=== PATIENT | male | born 1950 | race Caucasian/White ===

== ENCOUNTER → 2016-06-17 | Outpatient (REF) | payer OTHER ==
[~2016-06-17] MED LIST: /OCUVTA OR; ADV250INH INH; ALEV220T26 PO; ASPI1TAB PO; ATEN25TA PO; FISH1200 PO; FLAXOIL4 PO; LISI5TAB PO; MULTTAB4 PO; NITR4TASL SL; SIMV40TA2 PO; [UNRECOGNIZED DRUG - CODE] TD
[2016-06-19 14:16] LABS: Lyme Disease IgG/IgM Antibodie <0.91 ISR (0.00-0.90); Lyme Disease IgM Ab Quantitati <0.80 index (0.00-0.79)
== END ==
LOC: M LAB REF 16:43
PROVIDERS: ATTEND Internal Medicine
DX: M25.50 Pain in unspecified joint (principal)

== ENCOUNTER → 2017-03-17 | Outpatient (REF) | payer MEDICARE, OTHER ==
[2017-03-19 00:07] LABS: Lyme Disease IgG/IgM Antibodie <0.91 ISR (0.00-0.90); Lyme Disease IgM Ab Quantitati <0.80 index (0.00-0.79)
== END ==
LOC: M LAB REF 13:22
PROVIDERS: ATTEND Internal Medicine
DX: M25.562 Pain in left knee (principal); E29.1 Testicular hypofunction

== ENCOUNTER → 2017-07-08 | Outpatient (REF) | payer MEDICARE, OTHER ==
[2017-07-08 12:43] LABS: C REACTIVE PROTEIN QUANTITATIV 0.46 MG/DL (0.00-0.30)
[2017-07-08 13:12] LABS: INFLUENZA A AMPLIFICATION NEGATIVE (NEGATIVE); INFLUENZA B AMPLIFICATION NEGATIVE (NEGATIVE)
== END ==
LOC: M LAB REF 11:48
DX: R50.9 Fever, unspecified (principal); R05 Cough
CPT/HCPCS: 86140

== ENCOUNTER → 2018-04-16 | Outpatient (REF) | payer MEDICARE, OTHER ==
[2018-04-16 18:21] LABS: TESTOSTERONE 359 NG/DL (241-827)
== END ==
LOC: M LAB REF 16:32
DX: E29.1 Testicular hypofunction (principal)
CPT/HCPCS: 84403

== ENCOUNTER → 2018-09-15 | Outpatient (REF) | payer MEDICARE, OTHER ==
[~2018-09-15] MED LIST changes: -/OCUVTA OR; +PROS2TAB2 OR
== END ==
LOC: M LAB REF 18:25
PROVIDERS: ATTEND Internal Medicine
DX: R50.9 Fever, unspecified (principal); R05 Cough

== ENCOUNTER → 2018-10-15 | Outpatient (REF) | payer MEDICARE, OTHER ==
[2018-10-16 08:06] LABS: LDL DIRECT 62 mg/dL (0-99)
== END ==
LOC: M LAB REF 12:55
PROVIDERS: ATTEND Internal Medicine
DX: E29.1 Testicular hypofunction (principal); E78.5 Hyperlipidemia, unspecified

== ENCOUNTER → 2019-05-27 | Outpatient (REF) | payer MEDICARE, OTHER | LOC: M LAB REF 16:32 | PROVIDERS: ATTEND Internal Medicine | DX: N52.9 Male erectile dysfunction, unspecified (principal); E29.1 Testicular hypofunction ==

== ENCOUNTER → 2019-11-03 | Outpatient (REF) | payer MEDICARE, OTHER | LOC: M LAB REF 12:05 | PROVIDERS: ATTEND Internal Medicine | DX: R97.20 Elevated prostate specific antigen [PSA] (principal); N52.9 Male erectile dysfunction, unspecified; E29.1 Testicular hypofunction ==

== ENCOUNTER → 2020-05-03 | Outpatient (CLI) | payer SELFPAY | LOC: M LABSMTC 12:00 | PROVIDERS: ATTEND Pediatrics | DX: Z20.828 Contact with and (suspected) exposure to other viral communicable diseases (principal) ==

== ENCOUNTER → 2020-05-17 | Outpatient (REF) | payer MEDICARE, OTHER | LOC: M LAB REF 12:28 | PROVIDERS: ATTEND Internal Medicine | DX: R97.20 Elevated prostate specific antigen [PSA] (principal); N52.9 Male erectile dysfunction, unspecified; E29.1 Testicular hypofunction ==

== ENCOUNTER → 2020-08-22 | Outpatient (REF) | payer MEDICARE, OTHER ==
[2020-08-22 18:25] LABS: RHEUMATOID FACTOR QUANT < 10.0 IU/ML (<15.0)
[2020-08-22 18:34] LABS: VITAMIN B12 LEVEL 485 PG/ML (247-911)
[2020-08-25 00:06] LABS: ANTINUCLEAR ANTIBODIES DIRECT Negative (Negative); CYCLIC CITRULLINATED PEPTIDE 4 units (0-19)
== END ==
LOC: M LAB REF 16:51
PROVIDERS: ATTEND Internal Medicine
DX: R53.83 Other fatigue (principal); R20.2 Paresthesia of skin

== ENCOUNTER → 2020-08-23 | Outpatient (REF) | payer MEDICARE, OTHER | LOC: M LAB REF 09:17 | PROVIDERS: ATTEND Internal Medicine | DX: R19.7 Diarrhea, unspecified (principal) ==

== ENCOUNTER → 2020-09-11 | Outpatient (CLI) | payer MEDICARE, BC, OTHER ==
[~2020-09-11] MED LIST changes: +GASTROGRAFIN SOLUTION 30ML (Q9963) As Ordered ONE
--- NOTE | 2020-09-11 18:08 | REP ---
INDICATION: DIARRHEA, UNSPECIFIED COMPARISON: 02/19/2012. TECHNIQUE: CT Scan of the abdomen and pelvis was performed without intravenous contrast. Oral contrast was administered. Sagittal and coronal reconstruction images performed. FINDINGS: Lung bases: 2 calcified granulomas are seen in the right lower lobe along with mild fibrotic change. Liver: Grossly unremarkable. Gallbladder: There are gallstones in the gallbladder. Spleen: Grossly unremarkable. Adrenals: Normal. Pancreas: Grossly unremarkable.. Kidneys: There is a punctate calcification in the right lower pole collecting system. Small parapelvic cysts are seen in the lower pole the left kidney. There is no hydroureteronephrosis bilaterally. Small and large bowel: Grossly unremarkable. Free fluid: None. Abdominal aorta: No aneurysm. Adenopathy: None. Appendix: Prior appendectomy. Osseous structures: There are degenerative changes of the spine without compression deformity. Pelvis: No mass. No bladder calculus seen. A small umbilical hernia contains noninflamed fat. IMPRESSION: No definite bowel abnormality seen. Gallstones are seen in the gallbladder. Punctate right intrarenal calculus. Small parapelvic cysts lower left kidney. <Electronically signed by Sarbjit Simmons > 09/11/20 [id number]
== END ==
LOC: M RAD 16:09
PROVIDERS: ATTEND Internal Medicine
DX: R19.7 Diarrhea, unspecified (principal); R10.9 Unspecified abdominal pain; J84.10 Pulmonary fibrosis, unspecified; N28.1 Cyst of kidney, acquired; K42.9 Umbilical hernia without obstruction or gangrene; K80.20 Calculus of gallbladder without cholecystitis without obstruction; N20.0 Calculus of kidney
CPT/HCPCS: 74176; Q9963

== ENCOUNTER → 2020-11-23 | Outpatient (REF) | payer MEDICARE, BC, OTHER ==
[~2020-11-23] MED LIST changes: -GASTROGRAFIN SOLUTION 30ML (Q9963) As Ordered ONE
[2020-11-25 17:07] LABS: Lyme Disease IgG/IgM Antibodie <0.91 ISR (0.00-0.90); Lyme Disease IgM Ab Quantitati <0.80 index (0.00-0.79)
== END ==
LOC: M LAB REF 17:05
PROVIDERS: ATTEND Internal Medicine
DX: E29.1 Testicular hypofunction (principal); M25.511 Pain in right shoulder

== ENCOUNTER → 2020-12-07 | Outpatient (CLI) | payer MEDICARE, BC, OTHER ==
--- NOTE | 2020-12-07 09:29 | REP ---
INDICATION: RUQ ABD PAIN. COMPARISON: Abdomen/pelvis CT dated 09/11/2020. TECHNIQUE: Multiple ultrasonographic images of the abdominal right upper quadrant. FINDINGS: There are multiple gallbladder calculi in the gallbladder neck, nonmobile. These are also identified on the comparison CT. There is no gallbladder wall thickening or pericholecystic fluid. There is no right upper quadrant tenderness to transducer pressure. There is no intrahepatic biliary duct dilatation. However, the common duct is dilated measuring up to 4.8 mm (normal is up to 2 mm). Follow-up MRCP might be considered for further evaluation. The hepatic parenchyma is heterogeneous. There is a left lobe cyst measuring up to 0.8 cm in diameter. No hepatic masses are identified. The pancreas is partially obscured by bowel gas and there is limited visualization pancreas. The visualized portion of the pancreatic head is unremarkable. The right kidney is in the low normal size measuring 9.0 x 4.9 x 5.1 cm. There is no right renal calculus con are Cari hydronephrosis, solid mass or cyst. There is no right upper quadrant free fluid. IMPRESSION: Multiple nonmobile calculi in the gallbladder neck. There is no ultrasound evidence of acute cholecystitis. However, the common biliary duct is dilated measuring up to 4.8 mm. There is no intrahepatic biliary duct dilatation. Given patient's symptomatology follow-up MRCP might be considered. Small hepatic left lobe cyst. Limited views of the pancreas. <Electronically signed by Sarbjit Hugo > 12/07/20 [id number]
== END ==
LOC: M RAD 07:04
PROVIDERS: ATTEND Internal Medicine
DX: R10.11 Right upper quadrant pain (principal); K80.20 Calculus of gallbladder without cholecystitis without obstruction; K76.89 Other specified diseases of liver; K83.8 Other specified diseases of biliary tract

== ENCOUNTER → 2021-01-26 | Outpatient (CLI) | payer MEDICARE, BC, OTHER ==
[~2021-01-26] MED LIST changes: +ADV100INH; +BISO5TAB14; +HYDR12.55; +LOSA100T50; +PREG200C; +ZOLP10TA2
== END ==
LOC: M LABSMTC 10:36
PROVIDERS: ATTEND Anesthesiology
DX: Z01.812 Encounter for preprocedural laboratory examination (principal); Z20.822 Contact with and (suspected) exposure to COVID-19

== ENCOUNTER 2021-01-31 10:26 | Day surgery (SDC) | payer MEDICARE, BC, OTHER ==
[~2021-01-31] VITALS: Ht 180.3 cm; Wt 92.1 kg
[~2021-01-31 10:26] MED LIST changes: +NS 1,000 ML IV ONE
[2021-01-31] MEDS ORDERED: propofoL 200 MG/20 ML VIAL As Ordered ONE (11:24)
[2021-01-31] MEDS ORDERED: LIDOCAINE 2% 100MG/5ML SDV (FOR ANES.) As Ordered ONE (11:24)
[2021-01-31] MEDS ORDERED: fentaNYL 100 MCG/2 ML INJECTION (J3010) As Ordered ONE (12:28)
[2021-01-31] MEDS ORDERED: ePHEDrine SULFATE 25 MG/5 ML(5MG/ML) SYRINGE As Ordered ONE (12:39)
--- NOTE | 2021-01-31 12:47 | ROOR ---
Patient Name: Mateo Castillo Procedure Date: 01/31/2021 12:25 PM Date of : 1950 Age: 70 Room: [facility] Gender: Male Note Status: Finalized Procedure: Upper Endoscopy + Biopsies Indications: Epigastric abdominal pain, Heartburn, Follow-up of gastro-esophageal reflux disease Providers: Angel Luis Hernandez MD Referring MD: Doris Bojorquez DO Requesting Provider: Medicines: Monitored Anesthesia Care Complications: No immediate complications. Procedure: Pre-Anesthesia Assessment: - The heart rate, respiratory rate, oxygen saturations, blood pressure, adequacy of pulmonary ventilation, and response to care were monitored throughout the procedure. The Endoscope was introduced through the mouth, and advanced to the second part of duodenum. The upper GI endoscopy was accomplished without difficulty. The patient tolerated the procedure well. Findings: The Z-line was regular and was found 40 cm from the incisors. Multiple biopsies were obtained with cold forceps for evaluation to rule out Polo's Esophagus randomly at the gastroesophageal junction. Multiple dispersed, medium non-bleeding erosions were found on the greater curvature of the stomach. There were no stigmata of recent bleeding. Biopsies were taken with a cold forceps for Helicobacter pylori testing. The exam of the duodenum was otherwise normal. Impression: - Z-line regular, 40 cm from the incisors. - Non-bleeding erosive gastropathy. Biopsied. - Multiple biopsies were obtained at the gastroesophageal junction. - The examination was otherwise normal. Recommendation: - Patient has a contact number available for emergencies. The signs and symptoms of potential delayed complications were discussed with the patient. Return to normal activities tomorrow. Written discharge instructions were provided to the patient. - High fiber diet. - Discharge patient to home. - Follow an antireflux regimen. - Use Prilosec (omeprazole) 40 mg PO daily. - Return to referring physician. - Telephone GI clinic for pathology results in 1 week. - The findings and recommendations were discussed with the patient. Procedure Code(s): --- Professional --- 92952, Esophagogastroduodenoscopy, flexible, transoral; with biopsy, single or multiple Diagnosis Code(s): --- Professional --- K31.89, Other diseases of stomach and duodenum R10.13, Epigastric pain R12, Heartburn K21.9, Gastro-esophageal reflux disease without esophagitis CPT copyright 2019 [employer]. All rights reserved. The codes documented in this report are preliminary and upon forestry patrolman review may be revised to meet current compliance requirements. Angel Luis Hernandez MD Angel Luis Hernandez MD 01/31/2021 12:47:01 PM Electronically signed by Angel Luis Hernandez MD Number of Addenda: 0 Note Initiated On: 01/31/2021 12:25 PM Estimated Blood Loss: Estimated blood loss: none.
[2021-01-31] MEDS ORDERED: PHENYLephrine 500MCG 5ML (100MCG/ML) SYRINGE As Ordered ONE (12:50)
--- NOTE | 2021-01-31 13:01 | ROOR ---
Patient Name: Mateo Castillo Procedure Date: 01/31/2021 12:26 PM Date of : 1950 Age: 70 Room: [facility] Gender: Male Note Status: Finalized Procedure: Total Colonoscopy to Cecum + ileoscopy Indications: Screening for colorectal malignant neoplasm Providers: Angel Luis Hernandez MD Referring MD: Doris Bojorquez DO Requesting Provider: Medicines: Monitored Anesthesia Care Complications: No immediate complications. Procedure: Pre-Anesthesia Assessment: - The heart rate, respiratory rate, oxygen saturations, blood pressure, adequacy of pulmonary ventilation, and response to care were monitored throughout the procedure. The Colonoscope was introduced through the anus and advanced to the terminal ileum, with identification of the appendiceal orifice and IC valve. The colonoscopy was performed without difficulty. The patient tolerated the procedure well. The quality of the bowel preparation was excellent. Findings: The perianal and digital rectal examinations were normal. Non-bleeding internal hemorrhoids were found during retroflexion. The hemorrhoids were medium-sized and Grade I (internal hemorrhoids that do not prolapse). The terminal ileum appeared normal. Retroflexion in the right colon was performed. The exam was otherwise without abnormality on direct and retroflexion views. Impression: - Non-bleeding internal hemorrhoids. - The examined portion of the ileum was normal. - The examination was otherwise normal on direct and retroflexion views. - No specimens collected. - The exam was otherwise normal to the cecum. Recommendation: - Patient has a contact number available for emergencies. The signs and symptoms of potential delayed complications were discussed with the patient. Return to normal activities tomorrow. Written discharge instructions were provided to the patient. - High fiber diet. - Discharge patient to home. - Continue present medications. - Repeat colonoscopy in 10 years for screening purposes. - Return to referring physician. - The findings and recommendations were discussed with the patient. Procedure Code(s): --- Professional --- 61328, Colonoscopy, flexible; diagnostic, including collection of specimen(s) by brushing or washing, when performed (separate procedure) Diagnosis Code(s): --- Professional --- Z12.11, Encounter for screening for malignant neoplasm of colon K64.0, First degree hemorrhoids CPT copyright 2019 [employer]. All rights reserved. The codes documented in this report are preliminary and upon manager resource review may be revised to meet current compliance requirements. Angel Luis Hernandez MD Angel Luis Hernandez MD 01/31/2021 1:01:01 PM Electronically signed by Angel Luis Hernandez MD Number of Addenda: 0 Note Initiated On: 01/31/2021 12:26 PM Estimated Blood Loss: Estimated blood loss: none.
[2021-01-31 13:30] VITALS: BP 120/58
== END 2021-01-31 13:50 | disposition home or self-care (01) ==
LOC: M OPP 10:26
PROVIDERS: ATTEND Internal Medicine Gastroenterology
DX: Z12.11 Encounter for screening for malignant neoplasm of colon (principal); K64.0 First degree hemorrhoids; K21.9 Gastro-esophageal reflux disease without esophagitis; K31.89 Other diseases of stomach and duodenum; R10.13 Epigastric pain; Z79.82 Long term (current) use of aspirin; Z79.899 Other long term (current) drug therapy
CPT/HCPCS: 43239; 88305; G0121; J2370; J3010

== ENCOUNTER → 2021-06-06 | Outpatient (REF) | payer MEDICARE, BC, OTHER ==
[~2021-06-06] MED LIST changes: +LOSA100T45; -LOSA100T50; -NS 1,000 ML IV ONE
== END ==
LOC: M LAB REF 11:39
PROVIDERS: ATTEND Internal Medicine
DX: E29.1 Testicular hypofunction (principal)
CPT/HCPCS: 84403; G0103

== ENCOUNTER → 2021-07-16 | Outpatient (CLI) | payer MEDICARE, BC, OTHER ==
[~2021-07-16] MED LIST changes: +PROHANCE 279.3MG/ML 15ML VIAL As Ordered ONE; +PROHANCE 279.3MG/ML 5ML VIAL As Ordered ONE
== END ==
LOC: M RAD 07:41
PROVIDERS: ATTEND Internal Medicine
DX: M62.81 Muscle weakness (generalized) (principal); R26.89 Other abnormalities of gait and mobility; G31.9 Degenerative disease of nervous system, unspecified; R90.82 White matter disease, unspecified
CPT/HCPCS: 70553; A9576

== ENCOUNTER → 2021-08-23 | Outpatient (CLI) | payer MEDICARE, BC, OTHER ==
[~2021-08-23] MED LIST changes: -PROHANCE 279.3MG/ML 15ML VIAL As Ordered ONE; -PROHANCE 279.3MG/ML 5ML VIAL As Ordered ONE
== END ==
LOC: M RAD 07:27
PROVIDERS: ATTEND Internal Medicine
DX: K80.80 Other cholelithiasis without obstruction (principal)
CPT/HCPCS: 78227; A9537

== ENCOUNTER → 2021-09-07 | Outpatient (REF) | payer MEDICARE, BC, OTHER ==
[2021-09-08 08:11] LABS: LDL DIRECT 50 mg/dL (0-99)
== END ==
LOC: M LAB REF 13:14
PROVIDERS: ATTEND Internal Medicine
DX: E78.5 Hyperlipidemia, unspecified (principal)

== ENCOUNTER 2021-09-15 17:56 | Emergency (ER) | payer MEDICARE, BC, OTHER ==
[~2021-09-15] VITALS: Ht 177.8 cm; Wt 94.7 kg
[2021-09-15] MEDS ORDERED: SUCR1TAB56 (18:07)
[2021-09-15] MEDS ORDERED: BREO1INH3 (18:07)
[2021-09-15] MEDS ORDERED: CELE1CAP9 (18:07)
[2021-09-15] MEDS ORDERED: ASPIRIN 81 MG CHEW TABLET PO ONE ×2 (18:25→18:55)
[2021-09-15 18:51] LABS: BASO # 0.1 10^3/uL (0.0-0.2); BASO % 0.4 % (0.0-1.0); EOS % 0.1 % (0.0-3.0); HEMATOCRIT 43.2 % (42.0-52.0); HEMOGLOBIN 14.7 g/dl (13.5-17.5); LYMPH % 14.6 % (24.0-44.0); MEAN CORPUSCULAR HEMOGLOBIN 32.6 pg (27.0-33.0); MEAN CORPUSCULAR VOLUME 95.8 fl (80.0-96.0); MONO # 1.2 10^3/uL (0.0-0.8); MONO % 8.8 % (2.0-8.0); NEUTROPHILS # 10.1 10^3/uL (1.5-8.5); NEUTROPHILS % 75.7 % (36.0-66.0); PLATELET COUNT, AUTOMATED 195 10^3/uL (150-450); RED BLOOD COUNT 4.51 10^6/uL (4.30-6.10); WHITE BLOOD COUNT 13.4 10^3/uL (4.0-10.0)
[2021-09-15] MEDS ORDERED: ISOVUE-370 76% 100ML VIAL As Ordered ONE (19:03)
[2021-09-15 19:05] LABS: INR 0.97; PROTHROMBIN TIME 13.3 SECONDS (12.7-14.5)
[2021-09-15] MEDS: NITROGLYCERIN 0.4 MG SUBL TABLET SL PRN ×3 (19:19→20:13)
[2021-09-15 19:20] LABS: ALBUMIN 3.8 GM/DL (3.2-5.2); BILIRUBIN,DIRECT 0.3 MG/DL (0.0-0.2); BILIRUBIN,TOTAL 1.6 MG/DL (0.2-1.0); CALCIUM LEVEL 9.1 MG/DL (8.8-10.2); CREATININE FOR GFR 1.28 MG/DL (0.70-1.30); FREE T4 0.88 NG/DL (0.76-1.46); GLOMERULAR FILTRATION RATE 59.3 (>49); POTASSIUM SERUM 3.9 MEQ/L (3.5-5.1); THYROID STIMULATING HORMONE 0.513 uIU/ML (0.358-3.740); TOTAL PROTEIN 7.6 GM/DL (6.4-8.2)
[2021-09-15] MEDS ORDERED: IPRATROPIUM 0.5MG/ALBUTEROL 2.5MG INH SOL UD 3ML (DUONEB) NEB ONE ×2 (19:45→19:50)
[2021-09-15 19:50] LABS: CK-MB VALUE MASS 220.9 NG/ML (<3.6); MB/CK RELATIVE INDEX 8.63 (< OR =4)
[2021-09-15] MEDS ORDERED: HEPARIN SOD (PORCINE) 5000UNITS/ML 1ML VIAL/SYRINGE IV ONE (19:50)
[2021-09-15] MEDS ORDERED: HEPARIN DRIP 25,000 UNITS in IV 1 EA IV SCH (19:50)
[2021-09-15] MEDS ORDERED: CLOPIDOGREL 300 MG TAB (PLAVIX) PO ONE (19:50)
[2021-09-15] MEDS ORDERED: NITROGLYCERIN 2% OINT 1 GM *U/D* PKT TOP ONE (20:05)
[2021-09-15 20:26] VITALS: BP 129/65
[2021-09-15] MEDS ORDERED: diphenhydrAMINE 50MG CAP PO ONE (20:30)
[2021-09-15 21:34] VITALS: BP 154/89
== END 2021-09-15 21:43 | disposition short-term general hospital (02) ==
LOC: M ED 17:56
DX: I21.4 Non-ST elevation (NSTEMI) myocardial infarction (principal); I10 Essential (primary) hypertension; J45.909 Unspecified asthma, uncomplicated; E78.5 Hyperlipidemia, unspecified; Z79.899 Other long term (current) drug therapy; Z79.51 Long term (current) use of inhaled steroids; Z98.890 Other specified postprocedural states
CPT/HCPCS: 71045; 71275; 80047; 80048; 80076; 82550; 82553; 83690; 83880; 84439; 84443; 84484; 85025; 85610; 85730; 87040; 87486; 87581; 87633; 87798; 93005; 93041; 94760; 96374; 99285; J1644; Q9967

== ENCOUNTER → 2021-10-19 | Outpatient (CLI) | payer MEDICARE, BC, OTHER ==
[~2021-10-19] MED LIST changes: +BREO1INH3; +CELE1CAP9; +SUCR1TAB56
== END ==
LOC: M PLAIMG 15:22
PROVIDERS: ATTEND Orthopaedic Surgery
DX: M25.511 Pain in right shoulder (principal); S43.431A Superior glenoid labrum lesion of right shoulder, initial encounter; M94.211 Chondromalacia, right shoulder; M25.411 Effusion, right shoulder; S46.911A Strain of unspecified muscle, fascia and tendon at shoulder and upper arm level, right arm, initial encounter; X58.XXXA Exposure to other specified factors, initial encounter; Y92.9 Unspecified place or not applicable; Y93.9 Activity, unspecified; Y99.9 Unspecified external cause status

== ENCOUNTER → 2021-11-29 | Outpatient (REF) | payer MEDICARE, BC, OTHER | LOC: M LAB REF 16:07 | PROVIDERS: ATTEND Internal Medicine | DX: E29.1 Testicular hypofunction (principal) ==

== ENCOUNTER → 2022-05-29 | Outpatient (REF) | payer MEDICARE, OTHER, BC | LOC: M LAB REF 16:01 | PROVIDERS: ATTEND Internal Medicine | DX: E29.1 Testicular hypofunction (principal) ==

== ENCOUNTER → 2022-06-04 | Outpatient (CLI) | payer MEDICARE, OTHER, BC | LOC: M WUC 11:23 | PROVIDERS: ATTEND Internal Medicine | DX: J06.9 Acute upper respiratory infection, unspecified (principal); I51.7 Cardiomegaly; I70.0 Atherosclerosis of aorta; M48.14 Ankylosing hyperostosis [Forestier], thoracic region ==

== ENCOUNTER → 2023-09-12 | Outpatient (CLI) | payer MEDICARE, OTHER, BC ==
[~2023-09-12] MED LIST changes: +CELE0.09; -CELE1CAP9; -LOSA100T45; +LOSA100T46; -PREG200C; +PREG200C2
== END ==
LOC: M WUC 14:10
PROVIDERS: ATTEND Internal Medicine
DX: R06.02 Shortness of breath (principal); M17.11 Unilateral primary osteoarthritis, right knee; M25.50 Pain in unspecified joint; I48.0 Paroxysmal atrial fibrillation

== ENCOUNTER → 2025-01-27 | Outpatient (REF) | payer MEDICARE, OTHER, BC ==
[~2025-01-27] MED LIST changes: -ADV100INH; +ADVA1AER8; +ZOLP10TA11; -ZOLP10TA2
== END ==
LOC: M LAB REF 14:50
PROVIDERS: ATTEND Internal Medicine
DX: E29.1 Testicular hypofunction (principal)

== ENCOUNTER → 2025-02-14 | Outpatient (CLI) | payer MEDICARE, BC | LOC: M PLAIMG 12:01 | PROVIDERS: ATTEND Physician Assistant Surgical | DX: M19.012 Primary osteoarthritis, left shoulder (principal) ==

== ENCOUNTER → 2025-04-07 | Outpatient (REF) | payer MEDICARE, OTHER ==
[2025-04-07 13:46] LABS: PSA SCREENING 0.29 NG/ML (< 4.00)
[2025-04-07 13:52] LABS: VITAMIN B12 LEVEL 342.0 PG/ML (211-911)
== END ==
LOC: M LAB REF 12:26
PROVIDERS: ATTEND Internal Medicine
DX: R53.82 Chronic fatigue, unspecified (principal); E29.1 Testicular hypofunction; R20.2 Paresthesia of skin; Z12.5 Encounter for screening for malignant neoplasm of prostate
CPT/HCPCS: 82607; G0103